=== PATIENT | female | born 1955 | race Caucasian/White ===

== ENCOUNTER 2016-07-15 11:49 | Emergency (ER) | payer BC ==
--- NOTE | ~2016-07-15 | CR181 ---
[facility] A Service of [facility] & [facility] RADIOLOGY TEXT RESULTS PATIENT: ELIAS BARRIENTOS LOCATION: [place] : 53 UNIT #: [id number] AGE: [address]: Sharri Bunn SEX: F ORDER DR: [id number] [facility] [address] [place], [place] [address] [id number] E MR#: [id number] #: [id number] NAME: ELIAS BARRIENTOS : 1955 SEX: F STUDY DATE/TIME: 07/15/2016 12:03 UNIT: [facility] ROOM: STUDY DESCRIPTION: CR Lumbar Spine 2 or 3 Views Attending Physician: Sharri Bunn Pa-C Ordering Physician: Sharri Bunn Pa-C Primary Care Physician: Albino Giordano M.D. MEDICAL IMAGING REPORT This report is preliminary unless electronic signature is present EXAM Lumbar spine 3 views 07/15/2016 1203 hours HISTORY 61-year-old woman with 3-day history of left-sided low back pain with numbness extending to the left great toe. No reported injury. COMPARISON CT abdomen and pelvis 11/23/2009. FINDINGS AP and lateral views of the lumbar spine and a cone lateral view of the lumbosacral junction were performed. There are 5 non-rib bearing lumbar type vertebrae which are normally aligned. There is mild multilevel disc height loss with endplate spurring. Findings are most severe at L5-S1 where there is disc height loss, endplate sclerosis similar to prior CT 11/23/2009. No definite acute fracture. There are atherosclerotic changes of the abdominal aorta. IMPRESSION There is mild multilevel degenerative disc disease with severe disc height loss, endplate sclerosis and spurring at L5-S1 similar to prior CT abdomen and pelvis 11/23/2009. There is no fracture or subluxation. Dictated by... Davida Mccray M.D. THIS IS AN ELECTRONICALLY VERIFIED REPORT Davida Mccray M.D. at 07/15/2016 2:28 PM JULIO/pallavi TD: 07/15/2016 13:57 [facility] A Service of [facility] & [facility] RADIOLOGY TEXT RESULTS PATIENT: ELIAS BARRIENTOS LOCATION: [facility] : 53 UNIT #: [id number] AGE: [address]: Sharri Bunn SEX: F ORDER DR: AMANDA #: [id number] MEDICAL IMAGING REPORT Page 1 of 1 COPY
[~2016-07-15 11:49] MED LIST: ASPIRIN EC81 M1 PO; CLARITIN10 MG PO; FISH OIL 1,0001 EACH PO; OYSTER CALCIUM500 MG PO; PROTONIX PO; SYNTHROID PO
[2016-07-15 12:07] LABS: URINE SOURCE CLEAN CATCH
[2016-07-15 12:13] LABS: URINE APPEARANCE CLEAR; URINE BILIRUBIN NEG (NEG); URINE BLOOD NEG (NEG); URINE COLOR YELLOW; URINE GLUCOSE NEG (NEG); URINE KETONE TRACE (NEG); URINE LEUKOCYTE ESTERASE NEG (NEG); URINE NITRATE NEG (NEG); URINE PROTEIN NEG (NEG); URINE SPECIFIC GRAVITY 1.019 (1.003-1.035); URINE UROBILINOGEN 0.2 MG/DL (NEG)
[2016-07-15 12:15] LABS: CULTURE INDICATED? NO
== END 2016-07-15 12:50 | disposition home or self-care (01) ==
LOC: CFTX 11:49
PROVIDERS: Physician Assistant Medical
DX: S39.012A Strain of muscle, fascia and tendon of lower back, initial encounter (principal); M54.41 Lumbago with sciatica, right side; M13.88 Other specified arthritis, other site; Z98.890 Other specified postprocedural states; Z88.5 Allergy status to narcotic agent; Z79.899 Other long term (current) drug therapy; Z79.82 Long term (current) use of aspirin; X58.XXXA Exposure to other specified factors, initial encounter; Y92.9 Unspecified place or not applicable
CPT/HCPCS: 72100; 81003; 82947; 99283

== ENCOUNTER → 2016-10-22 | Outpatient (CLI) | payer BC ==
[2016-10-22 10:20] LABS: ALBUMIN SERUM 4.3 g/dL (3.5-5.0); BILIRUBIN,TOTAL 0.9 mg/dL (0.2-2.0); BUN/CREATININE RATIO 17.14; CALCIUM SERUM 9.6 mg/dL (8.4-10.2); CREATININE SERUM 0.7 mg/dL (0.6-1.4); GLOM FILT RATE Estimated 92.9 mL/min (>60); POTASSIUM 5.1 mmol/L (3.5-5.1); PROTEIN TOTAL SERUM 6.8 g/dL (6.0-8.3)
[2016-10-24 00:04] LABS: MICROALB UR (PNL) 0.9 mg/dL (***)
== END | disposition home or self-care (01) ==
LOC: CLAB 08:36
PROVIDERS: Internal Medicine Endocrinology, Diabetes & Metabolism
DX: E03.9 Hypothyroidism, unspecified (principal); E78.5 Hyperlipidemia, unspecified; I10 Essential (primary) hypertension; E11.9 Type 2 diabetes mellitus without complications
CPT/HCPCS: 36415; 80053; 80061; 82043; 82570; 83036; 84443